=== PATIENT | female | born 1970 | race Two or more races ===

== ENCOUNTER 2018-05-26 17:34 | Emergency (ER) | payer SELFPAY ==
[2018-05-26] MEDS ORDERED: KETOROLAC 30 MG/1 ML SDV IVP ONE (17:58)
--- NOTE | 2018-05-26 17:58 | EDPHY ---
H & P Time Seen by Provider: 05/26/18 17:42 HPI/ROS: CHIEF COMPLAINT: Flu-like symptoms HISTORY OF PRESENT ILLNESS: Patient is a 48-year-old female with no past medical history who presents to the emergency department with flu-like symptoms. Patient states that she has had a fever, body aches and headache for the past week. Patient describes diffuse headache. It is moderate. She has no focal weakness or numbness. No neck pain. No neck stiffness. No photophobia. She states she had 1 episode of nausea and vomiting. She has no dysuria frequency. No abdominal pain. No diarrhea. REVIEW OF SYSTEMS: 10 systems were reveiwed and are negative with the exception of the elements mentioned in the history of present illness. Past Medical/Surgical History: Negative Past surgical history: Negative Social history: Patient does not smoke. She traveled from [place] to [place]. Smoking Status: Never smoked Physical Exam: 37.1, 125/70, 95, 20, 94% on room air GENERAL: No acute distress, alert. HEENT: Eyes normal to inspection, normal pharynx, no signs of dehydration. NECK: Normal, supple. No signs of meningismus. RESPIRATORY: Clear to auscultation bilaterally, no rales, rhonchi or wheezing. Normal CVS: Regular rate and rhythm, no rubs, murmurs, or gallops. ABDOMEN: Soft, nontender, nondistended, no organomegaly. Benign BACK: Normal to inspection, no CVA tenderness. SKIN: Normal color, no rash, warm, dry. No pallor. EXTREMITIES: No pedal edema, no calf tenderness, no Homans sign or cords, no joint swelling. NEURO/PSYCH: Alert and oriented, normal mood and affect, normal motor sensory exam. No obvious cranial nerve deficit. Constitutional: Initial Vital Signs Temperature (C) 37.1 C 05/26/18 17:38 Heart Rate 95 05/26/18 17:38 Respiratory Rate 20 05/26/18 17:38 Blood Pressure 125/70 H 05/26/18 17:38 O2 Sat (%) 94 05/26/18 17:38 O2 Delivery Mode Room Air Allergies/Adverse Reactions: No Known Allergies Allergy (Unverified 05/26/18 17:38) Medical Decision Making ED Course/Re-evaluation: In the emergency department I discussed possible etiologies with the patient. I answered all her questions. IV was placed. She was given 1 L of normal saline for comfort and hydration. She was given Toradol 30 mg IV. Patient denies being . Flu swab was obtained Influenza screen negative I discussed the results with the patient. On recheck she was feeling better after the fluid and Toradol. The patient had no focal findings on repeat exam. She is given warnings prior to leaving. She will return with worsening symptoms. Differential Diagnosis: My differential includes but is not limited to viral illness, influenza, bacteremia, sepsis, meningitis, encephalitis, subarachnoid hemorrhage, cavernous sinus thrombosis, dissection, aneurysm - Data Points Laboratory Results: 05/26/18 18:05 Nasal Influenza A PCR NEGATIVE FOR FLU A (NEGATIVE) Nasal Influenza B PCR NEGATIVE FOR FLU B (NEGATIVE) Medications Given: Discontinued Medications Sodium Chloride (Ns) 1,000 mls @ 0 mls/hr IV ONCE ONE PRN Reason: Wide Open Stop: 05/26/18 18:00 Last Admin: 05/26/18 18:04 Dose: 1,000 mls Ketorolac Tromethamine (Toradol) 30 mg IVP EDNOW ONE Stop: 05/26/18 17:59 Last Admin: 05/26/18 18:05 Dose: 30 mg Departure - Departure Disposition: Home, Routine, Self-Care Clinical Impression: Viral syndrome Condition: Good Instructions: Viral Syndrome (ED) Additional Instructions: Your influenza screen was negative. However, you still could have a virus causing her symptoms. Return to the emergency department if you developed increasing headache, neck stiffness, visual change, weakness, numbness or any other concerns. Referrals: Merari Cosme MD [Medical Doctor] - 5-7 days, call for appt.
[2018-05-26] MEDS ORDERED: NS 1,000 ML IV ONE (17:59)
[2018-05-26] MEDS ORDERED: HYDROCOD/APAP 5/325 PREPACK#6 BTL TAKEHOME ONE (19:00)
[2018-05-26] MEDS ORDERED: ONDANSETRON 4MG PREPACK#2 BTL TAKEHOME ONE (19:00)
[2018-05-26 19:26] VITALS: BP 103/64
== END 2018-05-26 19:26 | disposition home or self-care (01) ==
DX: B34.9 Viral infection, unspecified (principal)
CPT/HCPCS: 96374; J1885

== ENCOUNTER 2018-05-28 08:39 | Emergency (ER) | payer SELFPAY ==
[2018-05-28] MEDS ORDERED: NS 1,000 ML IV ONE ×2 (08:45→09:05)
--- NOTE | 2018-05-28 08:56 | EDPHY ---
H & P Stated Complaint: weakness Time Seen by Provider: 05/28/18 08:56 HPI/ROS: HPI: This is a 48-year-old female who presents with Chief Complaint: Weakness Location: Body Quality: Weakness Duration: Several days Signs and Symptoms: no fever, no nausea, no vomiting, no diarrhea, no urinary symptoms, no chest pain, no shortness of breath, no wheezing, no cough, no sore throat, no neck stiffness, no joint pain, no swollen glands, no ear pain, no rash, no urinary symptoms Timing: Improving Severity: Moderate Context: Patient presents today with generalized body weakness with improving symptoms as no longer having fever, body aches and no cough for the last 2 days. Patient was seen in this emergency room on 05/26/2018 and diagnosed with influenza like illness. Laboratory studies show the influenza was negative. She received 1 L normal saline and IV Toradol 30 mg with relief of symptoms. Patient reports that she has a poor appetite but denies any nausea, vomiting, urinary symptoms, abdominal pain, back pain. She is here with her significant other who has a high temperature and similar symptoms that she did several days ago. They are to return to [facility] today but extended their trip. No history of lung disease. Modifying Factors: Has not taking any ibuprofen or Tylenol and 1 day. Comment: ROS: A comprehensive 10 system review of systems is otherwise negative aside from elements mentioned in the history of present illness. MEDICAL/SURGICAL/SOCIAL HISTORY: Medical history: Generally healthy. Does not take any regular medications. LMP 1-2 weeks ago. Surgical history: Denies Social history: Never smoked. Denies drug, alcohol, tobacco use. Family history noncontributory. CONSTITUTIONAL: Ill but nontoxic-appearing middle-aged female, awake and alert, no obvious distress HEENT: Atraumatic and normocephalic, PERRL, EOMI. Nares patent; no rhinorrhea; no nasal mucosal edema. Tympanic membranes clear. Oropharynx clear, no exudate and moist pink mucosa. Airway patent. No lymphadenopathy. No meningismus. Cardiovascular: Normal S1/S2, regular rate, regular rhythm, without murmur rub or gallop. PULMONARY/CHEST: Symmetrical and nontender. Clear to auscultation bilaterally with diminished breath sounds. Good air movement. No accessory muscle usage. Poor inspiratory effort. ABDOMEN: Soft, nondistended, nontender, no rebound, no guarding, no peritoneal signs, no masses or organomegaly. No CVAT. EXTREMITIES: 2/2 pulses, strength 5/5, no deformities, no clubbing, no cyanosis or edema. NEUROLOGICAL: no focal neuro deficits. GCS 15. SKIN: Warm and dry, no erythema. no rash. Good capillary refill. Source: Patient, Old records Exam Limitations: No limitations - Personal History LMP (Females 10-55): 8-14 Days Ago Current Tetanus/Diphtheria Vaccine: No Current Tetanus Diphtheria and Acellular Pertussis (TDAP): No - Medical/Surgical History Hx Asthma: No Hx Chronic Respiratory Disease: No Hx Diabetes: No Hx Cardiac Disease: No Hx Renal Disease: No Hx Cirrhosis: No Hx Alcoholism: No Hx HIV/AIDS: No Hx Splenectomy or Spleen Trauma: No Other PMH: denies - Social History Smoking Status: Never smoked Constitutional: Initial Vital Signs Temperature (C) 36.9 C 05/28/18 08:42 Heart Rate 82 05/28/18 08:42 Respiratory Rate 20 05/28/18 08:42 Blood Pressure 139/83 H 05/28/18 08:42 O2 Sat (%) 91 L 05/28/18 08:42 O2 Delivery Mode Room Air O2 (L/minute) 1 Allergies/Adverse Reactions: No Known Allergies Allergy (Unverified 05/26/18 17:38) Home Medications: Medication Instructions Recorded Albuterol Sulfate [Proair Hfa] 1 - 2 puffs IH Q4-6PRN PRN #1 05/28/18 [email or web address] Clarithromycin [Biaxin (*)] 500 mg PO BID 7 Days tab 05/28/18 Medical Decision Making - Diagnostics Imaging Results: Imaging Impressions Chest X-Ray 05/28/18 09:05 Impression: Viral pneumonitis versus atypical bronchopneumonia ED Course/Re-evaluation: Vital signs reviewed and show O2 sats 91% on room air. IV access, laboratory studies, chest x-ray ordered to evaluate for pneumonia. Patient given 2 L normal saline, IV Toradol 30 mg Symptoms are greater than 48 hr and patient is not a candidate for Tamiflu. 0932: Labs reviewed. No signs of leukocytosis/anemia/platelet dysfunction/JEAN/ electrolyte imbalance. Carboxyhemoglobin mildly elevated. 0935: Chest x-ray my read via PAC shows no effusion, no widened mediastinum, no pulmonary congestion, no pneumothorax. Radiology reports concern for viral pneumonitis versus atypical bronchopneumonia. Will treat patient for early outpatient pneumonia in a healthy individual with Biaxin 500 mg and prescription for same along with albuterol inhaler. Vital signs greatly improved at discharge. This patient was seen under the supervision of my secondary supervising physician. I evaluated care for this patient with attending. Discussed this patient with Dr. Cool who did not see the patient. Differential Diagnosis: Differential diagnosis includes but is not limited to influenza, RSV, viral syndrome, pneumonia, sepsis, acute kidney injury, dehydration. - Data Points Laboratory Results: Laboratory Results 05/28/18 09:05 05/28/18 09:05 05/28/18 05/28/18 05/28/18 09:05 09:05 09:05 WBC 5.12 10^3/uL 10^3/uL (3.80-9.50) RBC 4.46 10^6/uL 10^6/uL (4.18-5.33) Hgb 12.8 g/dL g/dL (12.6-16.3) Hct 38.7 % % (38.0-47.0) MCV 86.8 fL fL (81.5-99.8) MCH 28.7 pg pg (27.9-34.1) MCHC 33.1 g/dL g/dL (32.4-36.7) RDW 12.7 % % (11.5-15.2) Plt Count 187 10^3/uL 10^3/uL (150-400) MPV 10.4 fL fL (8.7-11.7) Neut % (Auto) 69.3 % % (39.3-74.2) Lymph % (Auto) 21.5 % % (15.0-45.0) [place] % (Auto) 8.0 % % (4.5-13.0) Eos % (Auto) 0.4 % L % (0.6-7.6) Baso % (Auto) 0.4 % % (0.3-1.7) Nucleat RBC Rel Count 0.0 % % (0.0-0.2) Absolute Neuts (auto) 3.55 10^3/uL 10^3/uL (1.70-6.50) Absolute Lymphs (auto) 1.10 10^3/uL 10^3/uL (1.00-3.00) Absolute Monos (auto) 0.41 10^3/uL 10^3/uL (0.30-0.80) Absolute Eos (auto) 0.02 10^3/uL L 10^3/uL (0.03-0.40) Absolute Basos (auto) 0.02 10^3/uL 10^3/uL (0.02-0.10) Absolute Nucleated RBC 0.00 10^3/uL 10^3/uL (0-0.01) Immature Gran % 0.4 % % (0.0-1.1) Immature Gran # 0.02 10^3/uL 10^3/uL (0.00-0.10) Carboxyhemoglobin 1.7 % H % (0-1.5) Sodium 139 mEq/L mEq/L (135-145) Potassium 4.1 mEq/L mEq/L (3.5-5.2) Chloride 106 mEq/L mEq/L (97-110) Carbon Dioxide 24 mEq/l mEq/l (22-31) Anion Gap 9 mEq/L mEq/L (6-14) BUN 10 mg/dL mg/dL (7-23) Creatinine 0.6 mg/dL mg/dL (0.6-1.0) Estimated GFR > 60 Glucose 102 mg/dL H mg/dL (70-100) Calcium 8.7 mg/dL mg/dL (8.5-10.4) Medications Given: Discontinued Medications Clarithromycin (Biaxin) 500 mg PO ONCE ONE PRN Reason: Protocol Stop: 05/28/18 10:24 Last Admin: 05/28/18 10:49 Dose: 500 mg Sodium Chloride (Ns) 1,000 mls @ 0 mls/hr IV ONCE ONE; Wide Open PRN Reason: Protocol Stop: 05/28/18 08:46 Last Admin: 05/28/18 09:18 Dose: 1,000 mls Sodium Chloride (Ns) 1,000 mls @ 0 mls/hr IV EDNOW ONE; Wide Open PRN Reason: Protocol Stop: 05/28/18 09:06 Last Admin: 05/28/18 10:42 Dose: 1,000 mls Ketorolac Tromethamine (Toradol) 30 mg IVP EDNOW ONE Stop: 05/28/18 09:06 Last Admin: 05/28/18 09:39 Dose: 30 mg Departure - Departure Disposition: Home, Routine, Self-Care Clinical Impression: Bronchopneumonia, Influenza-like illness Condition: Good Instructions: Influenza (ED), Community Acquired Pneumonia (ED) Additional Instructions: Rest as much as possible until you are feeling better. Consume a minimum of 8-10 glasses of water or electrolyte fluid replacement drinks that include Gatorade, Powerade, Pedialyte. Eat a bland diet for the next 48 hours and then slowly advance as tolerated. Take antibiotic as directed. Do not skip a dose. Use albuterol inhaler every 4-6 hours as needed for shortness of breath, wheezing. Take Tylenol 650 mg every 4 hr and/or ibuprofen 600 mg with food every 6-8 hours as needed for pain, fever. Referrals: [facility],. [Clinic] - As per Instructions Prescriptions: Albuterol Sulfate [Proair Hfa] 1 - 2 puffs IH Q4-6PRN PRN #1 [email or web address] PRN Reason: Short Of Breath/Dyspnea Clarithromycin [Biaxin (*)] 500 mg PO BID 7 Days tab Print Language: Yi
[2018-05-28] MEDS ORDERED: KETOROLAC 30 MG/1 ML SDV IVP ONE (09:05)
[2018-05-28 09:30] LABS: PLATELET COUNT 187 10^3/uL (150-400)
[2018-05-28] MEDS ORDERED: CLARITHROMYCIN 500 MG TAB PO ONE (10:23)
[2018-05-28 12:02] VITALS: BP 127/81
== END 2018-05-28 12:02 | disposition home or self-care (01) ==
LOC: EDUNIT#
DX: J18.0 Bronchopneumonia, unspecified organism (principal); E86.9 Volume depletion, unspecified
CPT/HCPCS: 96374; J1885

== ENCOUNTER 2018-05-29 00:19 | Observation (INO) | payer SELFPAY ==
--- NOTE | 2018-05-29 00:30 | EDPHY ---
H & P Stated Complaint: SOB X 1 DAY Time Seen by Provider: 05/29/18 00:29 HPI/ROS: HPI CHIEF COMPLAINT: Shortness of breath HISTORY OF PRESENT ILLNESS: 48-year-old female, recently seen in the emergency room on May 26, subsequently again on May 28, now return emergency room for 3rd time with shortness of breath. I did review her previous 2 ER visits. She was seen yesterday in the ER for generalized weakness she had a chest x-ray that showed bronchopneumonia atypical pneumonia placed on clarithromycin she received 2 L of fluid, as well as Toradol for pain control. And did well. She now presents back to the emergency room with shortness of breath. Patient states she cannot catch her breath. She denies any chest pain. She also appears anxious. Vital signs at triage are unremarkable she is not hypoxic. She arrives to the emergency room and states that she is short of breath. No pleuritic pain. On exam she has good air movement bilaterally. She states she has been using albuterol inhaler, also taking her antibiotics. Past Medical History: Denies medical history Past Surgical History: Denies surgical history Social History: Visiting from [facility]. Family History: Denies ROS REVIEW OF SYSTEMS: 10 Systems were reviewed and negative with the exception of the elements mentioned in the history of present illness. Exam Constitutional nontoxic no acute distress triage nursing summary reviewed, vital signs reviewed, awake/alert. Vital signs are stable doubt any hypoxia or tachycardia Eyes normal conjunctivae and sclera, EOMI, PERRLA. HENT normal inspection, atraumatic, moist mucus membranes, no epistaxis, neck supple/ no meningismus, no raccoon eyes. Respiratory good air movement bilaterally clear to auscultation bilaterally, normal breath sounds, no respiratory distress, no wheezing. Cardiovascular rate normal, regular rhythm, no murmur, no edema, distal pulses normal. Gastrointestinal soft, non-tender, no rebound, no guarding, normal bowel sounds, no distension, no pulsatile mass. Genitourinary no CVA tenderness. Musculoskeletal no midline vertebral tenderness, full range of motion, no calf swelling, no tenderness of extremities, no meningismus, good pulses, neurovascularly intact. Skin pink, warm, & dry, no rash, skin atraumatic. Neurologic awake, alert and oriented x 3, AAOx3, moves all 4 extremities equally, motor intact, sensory intact, CN II-XII intact, normal cerebellar, normal vision, normal speech. Psychiatric normal mood/affect. Heme/Lymph/Immune no lymphadenopathy. Differential Diagnosis: Includes but is not limited to in a particular order anxiety, worsening pneumonia, pneumothorax, PE Medical Decision Making: Plan for this patient IV establishment IV fluid bolus , chest x-ray, EKG, troponin, D-dimer. DuoNeb breathing treatment. IV fluids. Re-evaluate. Re-evaluation: EKG interpretation by me on record in [employer] system. Impression time of EKG 004 sinus rhythm rate of 83, no signs of acute ischemia no ST elevation no ST depression Patient presents back to the emergency room with shortness of breath no chest pain. Recently diagnosed with pneumonia. Visiting from [facility] Patient has a positive D-dimer given this is her 3rd ER visit for shortness of breath and a positive D-dimer will proceed with CT angiogram of the chest rule out pulmonary embolism. CT angiogram of the chest for PE given D-dimer, shortness of breath and hypoxia Report is faxed me by direct Radiology at 2:05 a.m.. No evidence of pulmonary embolism Preliminary report shows patchy bibasilar airspace opacities compatible with atelectasis consolidation most likely represent pneumonia. Mild cardiomegaly small bilateral pleural effusions pulmonary edema possible CHF. No pulmonary embolism. 209am: Given that this is this patient's 3rd ER visit and she is hypoxic here 88% I will obtain blood cultures, lactic acid, IV Levaquin will be given. 3rd ER visit I will admitted to the hospital service for hypoxia, shortness of breath, pneumonia. [place] Will admit to the hospitalist service 0214: Spoke with the hospitalist service they agree to admit Dr. Barrow. Blood culture sent. Lactic pending. IV Levaquin ordered. Source: Patient - Personal History LMP (Females 10-55): 8-14 Days Ago Current Tetanus Diphtheria and Acellular Pertussis (TDAP): No - Medical/Surgical History Hx Asthma: No Hx Chronic Respiratory Disease: No Hx Diabetes: No Hx Cardiac Disease: No Hx Renal Disease: No Hx Cirrhosis: No Hx Alcoholism: No Hx HIV/AIDS: No Hx Splenectomy or Spleen Trauma: No Other PMH: denies - Social History Smoking Status: Never smoked Constitutional: Initial Vital Signs Temperature (C) 36.7 C 05/29/18 00:23 Heart Rate 83 05/29/18 00:23 Respiratory Rate 16 05/29/18 00:23 Blood Pressure 136/83 H 05/29/18 00:23 O2 Sat (%) 93 05/29/18 00:23 O2 Delivery Mode Room Air O2 (L/minute) 2 Allergies/Adverse Reactions: No Known Allergies Allergy (Verified 05/29/18 09:39) Home Medications: Medication Instructions Recorded Albuterol Sulfate [Proair Hfa] 1 - 2 puffs IH Q4-6PRN PRN #1 05/28/18 hfa.aer.ad Oseltamivir Phosphate [Tamiflu 75 75 mg PO BID #7 cap 05/30/18 mg (*)] levOFLOXACIN [levAQUIN (*)] 750 mg PO DAILY #3 tab 05/30/18 Medical Decision Making - Data Points Laboratory Results: Laboratory Results 05/29/18 00:41 05/29/18 00:41 Medications Given: Discontinued Medications Acetaminophen (Tylenol) 650 mg PO Q4HRS PRN PRN Reason: Pain, Mild/Fever, Can Take PO Stop: 11/25/18 02:13 Last Admin: 05/30/18 05:22 Dose: 650 mg Albuterol/Ipratropium (Duoneb) 3 ml IH EDNOW ONE Stop: 05/29/18 00:34 Last Admin: 05/29/18 00:47 Dose: 3 ml Azithromycin (Zithromax) 500 mg PO EDNOW ONE PRN Reason: Protocol Stop: 05/29/18 02:45 Last Admin: 05/29/18 02:48 Dose: 500 mg Enoxaparin Sodium (Lovenox) 40 mg SC DAILY [facility] Stop: 11/25/18 08:59 Last Admin: 05/30/18 08:36 Dose: 40 mg Sodium Chloride (Ns) 1,000 mls @ 0 mls/hr IV EDNOW ONE; Wide Open PRN Reason: Protocol Stop: 05/29/18 00:34 Last Admin: 05/29/18 00:47 Dose: 1,000 mls Levofloxacin/Dextrose (Levaquin 750 Mg (Premix)) 150 mls @ 100 mls/hr IV EDNOW ONE PRN Reason: Protocol Stop: 05/29/18 03:37 Last Admin: 05/29/18 02:48 Dose: Not Given Ceftriaxone Sodium/Dextrose (Rocephin 1 Gm (Premix)) 50 mls @ 100 mls/hr IV DAILY@2100 ARNOLDO PRN Reason: Protocol Stop: 06/28/18 20:59 Last Admin: 05/29/18 20:16 Dose: 50 mls Ceftriaxone Sodium/Dextrose (Rocephin 1 Gm (Premix)) 50 mls @ 100 mls/hr IV EDNOW ONE PRN Reason: Protocol Stop: 05/29/18 03:13 Last Admin: 05/29/18 02:53 Dose: 50 mls Levofloxacin (Levaquin) 750 mg PO ONCE ONE PRN Reason: Protocol Stop: 05/30/18 08:01 Last Admin: 05/30/18 08:36 Dose: 750 mg Oseltamivir Phosphate (Tamiflu) 75 mg PO BIDMEAL ARNOLDO Stop: 06/02/18 18:01 Last Admin: 05/30/18 08:36 Dose: 75 mg Potassium Chloride (Klor-Con) 40 meq PO ONCE ONE Stop: 05/29/18 04:01 Last Admin: 05/29/18 03:57 Dose: 40 meq Point of Care Test Results: Chemistry 05/29/18 05/29/18 01:09 00:44 POC Troponin I 0.01 ng/mL ng/mL 0.00 ng/mL ng/mL (0.00-0.08) (0.00-0.08) Departure - Departure Disposition: [facility] Inpatient Acute Clinical Impression: Hypoxic, Influenza Pneumonia Qualifiers: Pneumonia type: due to unspecified organism Laterality: bilateral Lung location : unspecified part of lung Qualified Code(s): J18.9 - Pneumonia, unspecified organism Condition: Fair
[2018-05-29] MEDS ORDERED: NS 1,000 ML IV ONE (00:33)
[2018-05-29] MEDS ORDERED: IPRATROPIUM/ALBUTEROL 3 ML DEYVIAL IH ONE (00:33)
[2018-05-29 00:54] LABS: PLATELET COUNT 167 10^3/uL (150-400)
[2018-05-29] MEDS ORDERED: IOPAMIDOL (ISOVUE 370) 75 ML BTL IV ONE (01:15)
[2018-05-29] MEDS ORDERED: ONDANSETRON DISINTEGRATING 4 MG TAB PO PRN (02:14)
[2018-05-29] MEDS ORDERED: ALBUTEROL 3 ML DEYVIAL IH PRN (02:14)
[2018-05-29] MEDS ORDERED: ONDANSETRON 4 MG/2 ML VIAL IVP PRN (02:14)
--- NOTE | 2018-05-29 02:33 | PDGENHP ---
History and Physical - Chief Complaint Shortness of breath - History of Present Illness 48 yo F w/ no PMHx presents with shortness of breath. This is her 3rd visit to the ER over the last few days for the same. She was diagnosed with pneumonia yesterday and prescribed clarithromycin. She presents today with ongoing shortness of breath. She denies fever, body aches, and sore throa. She has a minimal dry cough. She is displaying 0/4 SIRS criteria but was noted to be mildly hypoxic on RA. CTPE was performed, which was negative for PE, but did demonstrate bibasilar infiltrates. She is being admitted for further management. Case discussed with ED physician Dr. Cooley; records reviewed and summarized above. History Information - Allergies/Home Medication List Allergies/Adverse Reactions: No Known Allergies Allergy (Unverified 05/26/18 17:38) I have personally reviewed and updated: family history, medical history - Past Medical History no pertinent PMH - Surgical History Reports: no pertinent surgical hx - Family History Additional family history: Asked, denies - Social History Smoking Status: Never smoked Review of Systems Review of Systems: ROS: 10pt was reviewed & negative except for what was stated in HPI & below Physical Exam Physical Exam: Temp Pulse Resp BP Pulse Ox 36.7 C 94 16 147/87 H 97 05/29/18 00:23 05/29/18 01:41 05/29/18 01:41 05/29/18 01:41 05/29/18 01:42 Constitutional: appears nourished, uncomfortable Eyes: PERRL, EOMI Ears, Nose, Mouth, Throat: moist mucous membranes, no oral mucosal ulcers Cardiovascular: regular rate and rhythym, no murmur, rub, or gallop, No edema Respiratory: no respiratory distress, inspiratory crackles Gastrointestinal: normoactive bowel sounds, soft, non-tender abdomen Skin: warm, normal color Neurologic: AAOx3, CN II-XII Intact Psychiatric: interacting appropriately, not anxious Lab Data & Imaging Review 05/29/18 00:41 05/29/18 00:41 WBC 4.93 10^3/uL (3.80-9.50) 05/29/18 00:41 RBC 3.87 10^6/uL (4.18-5.33) L 05/29/18 00:41 Hgb 11.1 g/dL (12.6-16.3) L 05/29/18 00:41 Hct 33.2 % (38.0-47.0) L 05/29/18 00:41 MCV 85.8 fL (81.5-99.8) 05/29/18 00:41 MCH 28.7 pg (27.9-34.1) 05/29/18 00:41 MCHC 33.4 g/dL (32.4-36.7) 05/29/18 00:41 RDW 13.0 % (11.5-15.2) 05/29/18 00:41 Plt Count 167 10^3/uL (150-400) 05/29/18 00:41 MPV 10.3 fL (8.7-11.7) 05/29/18 00:41 Neut % (Auto) 62.3 % (39.3-74.2) 05/29/18 00: Lymph % (Auto) 27.8 % (15.0-45.0) 05/29/18 00:41 [place] % (Auto) 8.7 % (4.5-13.0) 05/29/18 00:41 Eos % (Auto) 0.4 % (0.6-7.6) L 05/29/18 00:41 Baso % (Auto) 0.6 % (0.3-1.7) 05/29/18 00:41 Nucleat RBC Rel Count 0.0 % (0.0-0.2) 05/29/18 00:41 Absolute Neuts (auto) 3.07 10^3/uL (1.70-6.50) 05/29/18 00:41 Absolute Lymphs (auto) 1.37 10^3/uL (1.00-3.00) 05/29/18 00:41 Absolute Monos (auto) 0.43 10^3/uL (0.30-0.80) 05/29/18 00:41 Absolute Eos (auto) 0.02 10^3/uL (0.03-0.40) L 05/29/18 00:41 Absolute Basos (auto) 0.03 10^3/uL (0.02-0.10) 05/29/18 00:41 Absolute Nucleated RBC 0.00 10^3/uL (0-0.01) 05/29/18 00:41 Immature Gran % 0.2 % (0.0-1.1) 05/29/18 00:41 Immature Gran # 0.01 10^3/uL (0.00-0.10) 05/29/18 00:41 D-Dimer 2.27 ug/mLFEU (0.00-0.50) H 05/29/18 00:41 Sodium 139 mEq/L (135-145) 05/29/18 00:41 Potassium 3.3 mEq/L (3.5-5.2) L 05/29/18 00:41 Chloride 110 mEq/L (97-110) 05/29/18 00:41 Carbon Dioxide 21 mEq/l (22-31) L 05/29/18 00:41 Anion Gap 8 mEq/L (6-14) 05/29/18 00:41 BUN 8 mg/dL (7-23) 05/29/18 00:41 Creatinine 0.6 mg/dL (0.6-1.0) 05/29/18 00:41 Estimated GFR > 60 05/29/18 00:41 Glucose 130 mg/dL (70-100) H 05/29/18 00:41 Calcium 8.0 mg/dL (8.5-10.4) L 05/29/18 00:41 POC Troponin I 0.01 ng/mL (0.00-0.08) 05/29/18 01:09 NT-Pro-B Natriuret Pep 700 pg/mL (0-125) H 05/29/18 00:41 Visualized and Interpreted Chest x-ray results: Yes Chest X-Ray results: other (Vascular congestion) Assessment & Plan Assessment: 48 yo F w/ minimal PMHx presents with hypoxia from pneumonia. Plan: 1. Pneumonia - CTPE (personally reviewed/interpreted) demonstrates bibasilar opacities. She is displaying 0/4 SIRS criteria so could be viral as well. - CTX/Azithromycin for CAP coverage noting progression of symptoms despite outpatient clarithromycin - Blood cultures, respiratory PCR, procalcitonin ordered 2. AHRF - Mild, currently requiring 2 L/min O2 to maintain O2 sats >89%. I suspect this is related to pneumonia with possible, mild fluid overload as well. - Continue O2 PRN - Address pneumonia as above - Incentive spirometry ordered - May benefit from Lasix if not improving 3. Hypokalemia - Replete PRN 4. Elevated BNP - Possibly with diastolic dysfunction. - Consider Lasix if not improving 5. Normocytic anemia - No signs of bleeding. - Monitor CBC Diet - Regular Code - Full Ppx - LMWH Dispo - Admit under observation status
[2018-05-29] MEDS ORDERED: AZITHROMYCIN 250 MG TAB PO ONE ×3 (02:40→09:00)
[2018-05-29] MEDS ORDERED: cefTRIAXone 1 GM/DEXTROSE 1 GM/50 ML BAG IV ONE (02:41)
[2018-05-29] MEDS ORDERED: POTASSIUM CL 20 MEQ TAB PO ONE (04:00)
[2018-05-29 05:32] LABS: PLATELET COUNT 175 10^3/uL (150-400)
--- NOTE | 2018-05-29 07:24 | CPEKG ---
Test Reason : OPEN Blood Pressure : / mmHG Vent. Rate : 083 BPM Atrial Rate : 083 BPM P-R Int : 140 ms QRS Dur : 086 ms QT Int : 380 ms P-R-T Axes : -03 048 -38 degrees QTc Int : 447 ms Sinus rhythm Low voltage, precordial leads Borderline T abnormalities, diffuse leads Confirmed by Luis Velez ([id number]) on 05/29/2018 7:23:57 AM Referred By: Luis Velez Confirmed By:Luis Velez
--- NOTE | 2018-05-29 08:47 | HOSPPROG ---
Hospitalist Progress Note Assessment/Plan: 48 yo F w/ minimal PMHx presents with hypoxia from pneumonia. First encounter, chart reviewed. *pneumonia, likely viral -blood cx pending -procalcitonin is 0.04 (stable) -awaiting respiratory PCR -reviewed CT scan which shows no PE -azithro and ceftriaxone (05/29) *hypoxemic resp fx -due to the pna -much improved *hypokalemia -k 3.9 *normocytic anemia *plan: will evaluate respiratory panel- suspecting she has a viral infection Subjective: Lowla is feeling poorly. Objective: Vital Signs Temp Pulse Resp BP Pulse Ox 37.1 C 86 18 112/95 H 91 L 05/29/18 03:36 05/29/18 03:36 05/29/18 03:36 05/29/18 03:36 05/29/18 03:36 Laboratory Results 05/29/18 04:50 05/29/18 04:50 05/28/18 05/29/18 05/30/18 05:59 05:59 05:59 Intake Total 1100 Balance 1100 - Physical Exam Constitutional: no apparent distress Eyes: PERRL Ears, Nose, Mouth, Throat: hearing normal Cardiovascular: regular rate and rhythym Respiratory: no respiratory distress, reduced air movement (bibasilar) Skin: warm Musculoskeletal: full muscle strength Neurologic: AAOx3 Psychiatric: interacting appropriately ICD10 Worksheet Patient Problems: Problems Problem Status Onset Hypoxic Acute Pneumonia Acute
--- NOTE | 2018-05-29 09:20 | ASMTCMCOM ---
CM Note CM Note Notes: Pt is a 48 y/o female admitted for shortness of breath. Pt has been to the ER over the last few days for the same presentation. Pt was diagnosed with pneumonia yesterday. Pt will most likely d/c independent when medically stable. No therapies ordered at this time. CM available for changes. Plan: Independent Date Signed: 05/29/2018 09:20 AM Electronically Signed By:JULIANNA Lawrence
[2018-05-29] MEDS: ENOXAPARIN 40 MG/0.4 ML SYR SC SCH (10:51)
[2018-05-29] MEDS: ACETAMINOPHEN 325 MG TAB PO PRN (12:25)
[2018-05-29] MEDS ORDERED: ALBUTEROL 60 PUFFS/8 GM MDI IH PRN (12:30)
[2018-05-29] MEDS: OSELTAMIVIR PHOSPHATE 75 MG CAP PO SCH ×2 (13:11→18:38)
[2018-05-30] MEDS: ACETAMINOPHEN 325 MG TAB PO PRN (05:22)
--- NOTE | 2018-05-30 08:34 | GDS ---
ALL DIAGNOSES: 1. Influenza A infection. 2. Pneumonia, possibly bacterial superinfection, mild. 3. Acute hypoxic respiratory failure. 4. Hypokalemia. 5. Normocytic anemia. HOSPITAL COURSE: This is a 48-year-old female seen multiple times in the emergency room, finally adm itted. Respiratory panel showed influenza A positive. She has had symptoms consistent with an influ jnoes infection, including fevers, myalgias, and respiratory symptoms. CT angiogram showed that there was no pulmonary embolus; however, it did show suspected bronchopneumonia. She was treated for infl uenza infection, as well as possibility of a mild bacterial superinfection. On the day of discharge, she says that she is significantly improved. She is feeling much stronger. Her breathing feels much better. She is not coughing anymore. I will treat her for to complete her course of Tamiflu for influenza. I will also give her a short course, 5 days total, of Levaquin for possibility of a bacterial superinfection. She and her plan to travel back to [facility], where they live, today. I have offered to do every thing in my power to assist them with delaying their trip and not to be charged by the airline, [facility] they are insistent on flying today. I have recommended that she wear a mask the entire time that s he is in public, specially on the plane until she no longer has any respiratory symptoms. She and he r assure me that she is strong enough to make this flight. From my pulmonary exam, I think s he will be safe from a respiratory standpoint. Patient and her were seen with an [place] interpreter and translator. DISPOSITION: Patient is discharged in stable condition. /[id number]/MODL
[2018-05-30] MEDS: OSELTAMIVIR PHOSPHATE 75 MG CAP PO SCH (08:36)
[2018-05-30] MEDS: ENOXAPARIN 40 MG/0.4 ML SYR SC SCH (08:36)
[2018-05-30 08:43] VITALS: BP 139/91
[2018-05-30] MEDS ORDERED: AZITHROMYCIN 250 MG TAB PO SCH (09:00)
--- NOTE | 2018-05-30 09:05 | ASMTLACE ---
JAYLEN Length of stay for Answers: 1 day current admission # of Emergency department Answers: 3-4 visits in the last 6 months Score: 4 Date Signed: 05/30/2018 09:04 AM Electronically Signed By:Rebecca Colorado RN
--- NOTE | 2018-05-30 09:06 | ASMTDCNOTE ---
Case Management Discharge Discharge Order Complete? Answers: Yes Patient to Obtain Answers: Independently Medications Transportation Arranged Answers: Family/Friends Discharge Comments Notes: Medically cleared for discharge. No current needs. Date Signed: 05/30/2018 09:05 AM Electronically Signed By:Rebecca Colorado RN
== END 2018-05-30 12:06 | disposition home or self-care (01) ==
LOC: F1N 03:30
PROVIDERS: ADMIT Student in an Organized Health Care Education/Training Program; ATTEND Student in an Organized Health Care Education/Training Program
DX: J10.1 Influenza due to other identified influenza virus with other respiratory manifestations (principal); J18.9 Pneumonia, unspecified organism; J96.01 Acute respiratory failure with hypoxia; E87.6 Hypokalemia; E86.9 Volume depletion, unspecified; D64.9 Anemia, unspecified; R79.89 Other specified abnormal findings of blood chemistry
CPT/HCPCS: 84484-ER; 96365; G0378; J0696; J1650; Q9967